=== PATIENT | female | born 1950 | race American Indian/Alaskan Native ===

== ENCOUNTER 2016-07-31 15:46 | Outpatient (CLI) | payer MEDICARE ==
--- NOTE | 2016-07-31 16:44 | XRay Report ---
Left foot: There is marked dorsal swelling over the foot. The bones appear somewhat demineralized. There is no evidence of soft tissue calcification or bone erosion. The joint spaces are preserved and the articular surfaces are smooth. Impression: Nonspecific swelling. No radiographic evidence of gout.
== END 2016-07-31 15:47 | disposition home or self-care (01) ==
LOC: SPVIMAG 15:46
PROVIDERS: ATTEND Internal Medicine
DX: M10.072 Idiopathic gout, left ankle and foot (principal); M79.89 Other specified soft tissue disorders

== ENCOUNTER 2017-06-30 13:51 | Outpatient (CLI) | payer MEDICARE ==
--- NOTE | 2017-07-01 09:26 | Mammography Report ---
BILATERAL DIGITAL SCREENING MAMMOGRAM with CAD: 06/30/17 13:51:00 CLINICAL: Routine screening. COMPARISON:Of eleven sixteen FINDINGS: The breasts are almost entirely fatty. No mass, architectural distortion or suspicious calcifications. IMPRESSION: No mammographic evidence of malignancy. BI-RADS CATEGORY: 2 -- Benign RECOMMENDATION: Routine mammographic screening in one year. COMMENT: Patient follow-up letters are generated by our [employer] application.
== END 2017-06-30 13:52 | disposition home or self-care (01) ==
LOC: SPVWC 13:51
PROVIDERS: ATTEND Internal Medicine
DX: Z12.31 Encounter for screening mammogram for malignant neoplasm of breast (principal)
CPT/HCPCS: 77067; G0202

== ENCOUNTER 2017-11-26 15:00 | Outpatient (CLI) | payer MEDICARE ==
--- NOTE | 2017-11-29 08:39 | XRay Report ---
Right femur: Acute pain. The bones appear generally well mineralized. No focal or generalized lesion is identified. There is an unremarkable total knee replacement. The hip joint is grossly normal. There is diffuse calcification of the superficial femoral artery. Evaluation of the soft tissues is somewhat limited however there is no focal soft tissue swelling or obvious soft tissue mass identified. Impressions: No acute pathology noted.
--- NOTE | 2017-11-29 08:58 | XRay Report ---
Right hip: Pain. The hip joint space is preserved. The articular surfaces are smooth. There is good alignment. The hip is symmetric with the left side. The SI joints appear grossly intact. 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 The bones appear moderately well mineralized. No soft tissue abnormalities other than mild vascular calcification. Impression: 1. Normal hips. 2. Abnormal lumbar spine with no gross change in the frontal projection compared to January 2016.
== END 2017-11-26 15:01 | disposition home or self-care (01) ==
LOC: XRAY 15:00
PROVIDERS: ATTEND Internal Medicine
DX: M51.36 Other intervertebral disc degeneration, lumbar region (principal); I70.8 Atherosclerosis of other arteries

== ENCOUNTER 2019-06-30 13:25 | Outpatient (CLI) | payer MEDICARE ==
--- NOTE | 2019-07-03 15:17 | Mammography Report ---
DIGITAL SCREENING MAMMOGRAM WITH CAD, 06/30/2019 INDICATION: Routine screening mammography. TECHNIQUE: Digital bilateral 2D mammography was obtained in the craniocaudal and mediolateral obliq ue projections. This examination was interpreted with the benefit of Computer-Aided Detection analysi s. COMPARISON: 06/29/2018 FINDINGS: Breast Density: The breasts are almost entirely fatty. There is no evidence of dominant mass, suspicious calcifications or architectural distortion in eithe r breast. Stable bilateral benign calcifications. IMPRESSION: No mammographic evidence of malignancy. Follow up recommendation: Routine yearly BI-RADS Category 2: Benign. A "normal" or negative report should not discourage follow up or biopsy of a clinically significant f inding. A written summary of these findings will be mailed to the patient. The patient will be entered into a mammography reporting system which will generate a reminder letter for the patient's next appointmen t at the appropriate interval. The [employer] recommends yearly mammograms starting at age 40 and continuing as l carloz as a woman is in good health. Breast MRI is recommended for women with an approximate 20-25% or greater lifetime risk of breast cancer, including women with a strong family history of breast or [place]va [place] cancer or who have been treated for Hodgkin's disease. Signer Name: Varun Topete MD Signed: 07/03/2019 3:13 PM Workstation Name: [id number]
== END 2019-06-30 13:26 | disposition home or self-care (01) ==
LOC: SPVWC 13:25
PROVIDERS: ATTEND Internal Medicine
DX: Z12.31 Encounter for screening mammogram for malignant neoplasm of breast (principal)
CPT/HCPCS: 77067